=== PATIENT | female | born 1975 | race African-American/Black ===

== ENCOUNTER 2021-06-13 19:59 | Emergency (ER) | payer BC ==
[~2021-06-13] VITALS: Ht 172.7 cm; Wt 120.0 kg
[2021-06-13 23:29] VITALS: BP 169/88
[2021-06-13] MEDS ORDERED: IBUPROFEN 200 MG TABLET. PO ONE (23:45)
--- NOTE | 2021-06-13 23:48 | PHYS DOC ---
Past Medical History Past Medical History: No Pertinent History Past Surgical History: No Surgical History General Adult EDM: Chief Complaint: KNEE INJURY HPI: HPI: Patient is a 45 year old female who presents with left knee pain. Patient states she hit her knee on the corner of a pallet at work 1 week ago. She reports she had no pain at the time of injury, but started having pain 2 days ago. Originally, she presented to the emergency department with her mother as a patient, but on arrival her knee "buckled underneath" her. She rates her pain 8/10 standing with no pain at rest. She has no prior injury or surgery on the affected knee. Patient has no other complaints at this time. Review of Systems: Review of Systems: 12 systems reviewed. ROS negative except as mentioned in HPI. Heart Score: C/O Chest Pain: No Physical Exam: PE: Constitutional: Well developed, well nourished, no acute distress, non-toxic appearance. Cardiovascular: Heart rate regular rhythm, no murmur. Lungs & Thorax: Bilateral breath sounds clear to auscultation. Skin: Warm, dry, no erythema, no rash, no abrasion, no laceration. Extremities: Left knee mild tenderness to palpation, active and passive range of motion intact, no joint laxity with anterior or posterior drawer test. Extremities otherwise no tenderness, no cyanosis, no clubbing, ROM intact, no edema. Neurologic: Alert and oriented x3, normal motor function, normal sensory function, no focal deficits noted. Radiology/Procedures: Radiology/Procedures: PROCEDURE: KNEE LEFT 4V EXAMINATION: XR KNEE _4 VIEWS WITH PATELLA_LT CLINICAL HISTORY: Trauma TECHNIQUE: XR KNEE _4 VIEWS WITH PATELLA_LT COMPARISON: None FINDINGS/ IMPRESSION: Mild medial compartment narrowing and lateral patellofemoral compartment narro wing. No acute fracture. No significant joint effusion. Electronically signed by: Derek Granados DO (06/14/2021 12:17 AM) [facility] Course & Med Decision Making: Course & Med Decision Making Pertinent Labs and Imaging studies reviewed. (See chart for details) X-rays of left knee obtained to evaluate for any healing fracture from injury that occurred last week. X-rays negative for fracture and dislocation. Patient will be placed in Clement wrap and instructed to use [id number] ibuprofen every 6 hours. Patient will be provided with a work note so that she will be able to RICE therapy her knee. Otherwise, patient provided with orthopedic follow-up if her symptoms do not improve. Patient understands and is agreeable to discharge plan. Eric Disclaimer: Eric Disclaimer: This electronic medical record was generated, in whole or in part, using a voice recognition dictation system. Departure Departure Impression: Primary Impression: Contusion of left knee, initial encounter Disposition: HOME / SELF CARE / HOMELESS Condition: STABLE Referrals: NO PCP (PCP) MICHEAL GONZALEZ DO Patient Instructions: RICE - Routine Care for Injuries, [id number] Additional Instructions: X-rays today did not reveal any fractures or dislocations. X-ray does not evaluate soft tissue injuries. You should follow the RICE therapy instructions given to you today. You may take up to 800 mg of ibuprofen every 8 hours as needed. If your symptoms do not improve, you may follow-up with orthopedic doctor using contact information on this paperwork. Please return to the emergency department if your pain worsens or you develop new symptoms. YANICK SNYDER Jun 13, 2021 23:48
--- NOTE | 2021-06-14 00:19 | RAD ---
EXAMINATION: XR KNEE _4 VIEWS WITH PATELLA_LT CLINICAL HISTORY: Trauma TECHNIQUE: XR KNEE _4 VIEWS WITH PATELLA_LT COMPARISON: None FINDINGS/ IMPRESSION: Mild medial compartment narrowing and lateral patellofemoral compartment narrowing. No acute fracture . No significant joint effusion. Electronically signed by: Derek Granados DO (06/14/2021 12:17 AM) MALIK
== END 2021-06-14 02:07 | disposition home or self-care (01) ==
LOC: ER 19:59
DX: S80.02XA Contusion of left knee, initial encounter (principal); W22.8XXA Striking against or struck by other objects, initial encounter; Y93.89 Activity, other specified; Y92.69 Other specified industrial and construction area as the place of occurrence of the external cause; Y99.0 Civilian activity done for income or pay
CPT/HCPCS: 73564; 99283

== ENCOUNTER 2022-01-07 08:57 | Emergency (ER) | payer OTHER, BC ==
[~2022-01-07] VITALS: Ht 180.3 cm; Wt 88.0 kg
[2022-01-07 09:04] VITALS: BP 171/93
[2022-01-07] MEDS ORDERED: DIPHTH,PERTUSS(ACELL),TET TOX 0.5 ML DISP.SYRIN. VAX IM ONE (09:15)
--- NOTE | 2022-01-07 09:36 | RAD ---
EXAM: Right hand, 3 views. HISTORY: Trauma. COMPARISON: None. FINDINGS: 3 views of the right hand are obtained. There is a displaced and angulated mid third metaca rpal fracture. There is a displaced and minimally angulated distal fourth metacarpal fracture. No for eign body is seen. IMPRESSION: Displaced and angulated third and fourth metacarpal fractures. Electronically signed by: Charissa Dale MD (01/07/2022 9:33 AM) [id number]
--- NOTE | 2022-01-07 09:36 | RAD ---
EXAM: Right greater than, 3 views. HISTORY: Trauma. COMPARISON: None. FINDINGS: 3 views of the right wrist are obtained. There is a displaced and angulated mid third metac arpal fracture. There is a displaced and minimally angulated distal fourth metacarpal fracture. No fo reign body is seen. IMPRESSION: Displaced and angulated third and fourth metacarpal fractures. Electronically signed by: Charissa Dale MD (01/07/2022 9:34 AM) [id number]
[2022-01-07] MEDS ORDERED: LIDOCAINE 2% Multi-Dose 20 ML VIAL. IJ ONE (09:45)
--- NOTE | 2022-01-07 09:48 | PHYS DOC ---
Past Medical History Past Medical History: No Pertinent History Past Surgical History: No Surgical History Smoking Status: Current Every Day Smoker Alcohol Use: None General Adult EDM: Chief Complaint: HAND PROBLEM HPI: HPI: Patient is a 46-year-old female who presents today with right hand pain. Patient states that she was at work last night and she said she smashed her hand, she is she is on able to recall the exact events but states that it happened at work last evening. Patient is right-hand dominant. Review of Systems: Review of Systems: Constitutional: Denies fever or chills. [] Eyes: Denies change in visual acuity. [] HENT: Denies nasal congestion or sore throat. [] Respiratory: Denies cough or shortness of breath. [] Cardiovascular: Denies chest pain or edema. [] GI: Denies abdominal pain, nausea, vomiting, bloody stools or diarrhea. [] : Denies dysuria. [] Musculoskeletal: Right hand pain denies back pain or joint pain. [] Integument: Denies rash. [] Neurologic: Denies headache, focal weakness or sensory changes. [] Endocrine: Denies polyuria or polydipsia. [] Lymphatic: Denies swollen glands. [] Psychiatric: Denies depression or anxiety. [] Heart Score: C/O Chest Pain: No Risk Factors: Risk Factors: DM, Current or recent (<one month) smoker, HTN, HLP, family history of CAD, obesity. Risk Scores: Score 0 - 3: 2.5% MACE over next 6 weeks - Discharge Home Score 4 - 6: 20.3% MACE over next 6 weeks - Admit for Clinical Observation Score 7 - 10: 72.7% MACE over next 6 weeks - Early Invasive Strategies Current Medications: Current Medications Medications (Trade) Dose Ordered Sig/Sasha Start Time Stop Time Status Last Admin Dose Admin Diphtheria/ Tetanus/Acell Pertussis (Boostrix) 0.5 ml ONCE ONCE 01/07/22 09:15 01/07/22 09:17 DC Allergies: Allergies: Allergies Coded Allergies Type Severity Reaction Last Updated Verified No Known Drug Allergies 06/14/21 No Physical Exam: PE: Constitutional: Well developed, well nourished, no acute distress, non-toxic appearance. [] HENT: Normocephalic, atraumatic, bilateral external ears normal, oropharynx moist, no oral exudates, nose normal. [] Eyes: PERRLA, EOMI, conjunctiva normal, no discharge. [] Neck: Normal range of motion, no tenderness, supple, no stridor. [] Cardiovascular:Heart rate regular rhythm, no murmur [] Lungs & Thorax: Bilateral breath sounds clear to auscultation [] Abdomen: Bowel sounds normal, soft, no tenderness, no masses, no pulsatile masses. [] Skin: Abrasions noted on the dorsal aspect of the right hand well-healed with scabs in place no signs and symptoms of infection Back: No tenderness, no CVA tenderness. [] Extremities: Right hand is swollen and tender to touch patient is able to fully extend and flex the fingers and make a fist, patient has no numbness or tingling distal to the pain, cap refill in all fingers is less than 2 seconds and sens ory is intact. Radial pulses 2+ Neurologic: Alert and oriented X 3, normal motor function, normal sensory function, no focal deficits noted. [] Psychologic: Affect normal, judgement normal, mood normal. [] Current Patient Data: Vital Signs: Vital Signs Date Time Temp Pulse Resp B/P (MAP) Pulse Ox O2 Delivery O2 Flow Rate FiO2 01/07/22 09:04 98.0 93 20 171/93 (119) 98 98.0 EKG: EKG: [] Radiology/Procedures: Radiology/Procedures: [REASON: pain and jamming at work PROCEDURE: HAND RIGHT 3V EXAM: Right hand, 3 views. HISTORY: Trauma. COMPARISON: None. FINDINGS: 3 views of the right hand are obtained. There is a displaced and angulated mid third metacarpal fracture. There is a displaced and minimally angulated distal fourth metacarpal fracture. No foreign body is seen. IMPRESSION: Displaced and angulated third and fourth metacarpal fractures. Electronically signed by: Charissa Dale MD (01/07/2022 9:33 AM) [id number]] REASON: post reduction PROCEDURE: HAND RIGHT 3V EXAM: Right hand, 3 views. HISTORY: Fracture reduction. COMPARISON: 01/07/2022 FINDINGS: 3 views of the right hand are obtained. There has been minimal interval decreased displacement and angulation of a mid third metacarpal fracture. There is an unchanged mildly displaced and angulated distal fourth met acarpal fracture. There is external casting material. IMPRESSION: Minimal closed reduction of a mid third metacarpal fracture, a component of which may be due to differences in image projection. There is an unchanged distal fourth metacarpal fracture. Electronically signed by: Charissa Dale MD (01/07/2022 11:43 AM) [id number] REASON: fell and +LOC PROCEDURE: CT HEAD WO CONTRAST CT head without contrast: Reason for examination: Fell with loss of consciousness. Comparison is made to previous study dated 03/24/2012. Helical images were obtained through the brain with no contrast administered. Reconstruction was performed in sagittal and coronal planes. Exposure: One or more of the following individualized dose reduction techniques were utilized for this examination: 1. Automated exposure control 2. Adjustment of the mA and/or kV according to patient size 3. Use of iterative reconstruction technique. Ventricular systems are symmetric and not abnormally dilated. No midline shift is seen. There is no evidence of intracranial hemorrhage, infarct, mass or edema. Dense calcification is again seen along the falx. No abnormalities are seen at the orbits. The paranasal sinuses and mastoid air cells are clear. No acute abnormality seen in the calvarium. IMPRESSION: No acute intracranial abnormality evident. Electronically signed by: Patti Mccollum MD (01/07/2022 11:46 AM) DENNISE Course & Med Decision Making: Course & Med Decision Making Pertinent Labs and Imaging studies reviewed. (See chart for details) 11:00 right dorsum of the hand in between the third and fourth metacarpals I instilled 6 mL of lidocaine 2%, after appropriate anesthetizing was obtained I provided countertraction to the third finger and reduced the displaced metacarpal. Area was then splinted with a volar splint that was placed by myself and neurovascular was intact after the placement of the splint. I will get post reduction films of this time. I did speak to Dr. Kwon and he is agreeable to seeing this patient on an outpatient basis for further evaluation and management of this fracture. The nurse and myself were talking to the patient more she states this did happen at work that when she smashed her hand she fell back and hit a wall and had a loss of consciousness, due to the loss of consciousness and the inconsistencies with the reported incident I will CT scan her head just to make sure that she has no head bleed. I 1145 I reviewed radiological results with Dr. Morales and he feels the reduction is appropriate enough to discharge the patient home, patient is instructed to follow-up with Dr. Kwon this week, patient will be instructed to leave the splint in place until follow-up is obtained, patient is to take Tylenol and/or ibuprofen as needed for pain. 1210 I reviewed radiological results with patient and did inform her CT scan was normal that she will need to follow-up with Dr. Beard as soon as possible this week for further evaluation and management of her hand fracture. Patient will be given a sling to help with swelling, patient is advised to ice 20 minutes on 3-4 times daily and to take Tylenol and/or ibuprofen as needed for pain. Patient is encouraged to return here to the emergency department should she have numbness or tingling in your fingers or your fingers become cold and blue. Patient verbalized understanding of this and agreeable with the plan of care. Rachelon Disclaimer: Eric Disclaimer: This electronic medical record was generated, in whole or in part, using a voice recognition dictation system. Departure Departure Impression: Primary Impression: Fracture, metacarpal shaft Qualified Codes: S62.322A - Displaced fracture of shaft of third metacarpal bone, right hand, initial encounter for closed fracture Additional Impression: Closed fracture of hand Qualified Codes: S62.91XA - Unspecified fracture of right wrist and hand, initial encounter for closed fracture Disposition: 01 HOME / SELF CARE / HOMELESS Condition: STABLE Referrals: NO PCP (PCP) VERONIQUE KWON II, MD Patient Instructions: Hand Fracture, Metacarpals, RICE - Routine Care for Injuries Additional Instructions: Keep splint clean and dry and leave in place until you are followed up with Dr. Kwon Ice 20 minutes on 3-4 times daily to help with localized pain relief and swelling [id number] Tylenol and/or ibuprofen as needed for pain Follow-up with Dr. Kwon the orthopedic doctor on-call this week for further evaluation and management of this fracture Return to the emergency department should you have numbness and tingling of your fingers or bluing of your fingertips. DONNA RODRIGUEZ SPOUT LINER January 07, 2022 09:48
--- NOTE | 2022-01-07 11:45 | RAD ---
EXAM: Right hand, 3 views. HISTORY: Fracture reduction. COMPARISON: 01/07/2022 FINDINGS: 3 views of the right hand are obtained. There has been minimal interval decreased displacem ent and angulation of a mid third metacarpal fracture. There is an unchanged mildly displaced and ang ulated distal fourth metacarpal fracture. There is external casting material. IMPRESSION: Minimal closed reduction of a mid third metacarpal fracture, a component of which may be due to differences in image projection. There is an unchanged distal fourth metacarpal fracture. Electronically signed by: Charissa Dale MD (01/07/2022 11:43 AM) [id number]
--- NOTE | 2022-01-07 11:48 | RAD ---
CT head without contrast: Reason for examination: Fell with loss of consciousness. Comparison is made to previous study dated 03/24/2012. Helical images were obtained through the brain with no contrast administered. Reconstruction was perf ormed in sagittal and coronal planes. Exposure: One or more of the following individualized dose reduction techniques were utilized for thi s examination: 1. Automated exposure control 2. Adjustment of the mA and/or kV according to patient size 3. Use of iterative reconstruction technique. Ventricular systems are symmetric and not abnormally dilated. No midline shift is seen. There is no e vidence of intracranial hemorrhage, infarct, mass or edema. Dense calcification is again seen along t he falx. No abnormalities are seen at the orbits. The paranasal sinuses and mastoid air cells are clear. No ac citizen [place] abnormality seen in the calvarium. IMPRESSION: No acute intracranial abnormality evident. Electronically signed by: Patti Mccollum MD (01/07/2022 11:46 AM) DENNISE
== END 2022-01-07 12:41 | disposition home or self-care (01) ==
LOC: ER 08:57
DX: S62.322A Displaced fracture of shaft of third metacarpal bone, right hand, initial encounter for closed fracture (principal); S62.91XA Unspecified fracture of right hand, initial encounter for closed fracture; F17.200 Nicotine dependence, unspecified, uncomplicated; W18.39XA Other fall on same level, initial encounter; Y93.89 Activity, other specified; Y92.89 Other specified places as the place of occurrence of the external cause; Y99.8 Other external cause status
CPT/HCPCS: 26605; 70450; 73110; 73130; 90471; 90715; 99284-25